=== PATIENT | male | born 1985 | race Two or more races ===

== ENCOUNTER 2024-04-04 10:35 | Emergency (ER) | payer SELFPAY ==
[~2024-04-04] VITALS: Ht 177.8 cm; Wt 75.0 kg
[2024-04-04 10:44] VITALS: BP 113/84; PULSE 110; RESP 20; TEMP 98.6; O2SAT 98
== END 2024-04-04 12:27 | disposition left against medical advice (07) ==
LOC: ER 11:44
DX: R68.89 Other general symptoms and signs (principal); Z53.21 Procedure and treatment not carried out due to patient leaving prior to being seen by health care provider